=== PATIENT | female | born 1985 | race Caucasian/White ===

== ENCOUNTER 2016-11-22 09:02 | Emergency (ER) | payer OTHER ==
[2016-11-22 10:19] VITALS: BP 127/91
[2016-11-22] MEDS ORDERED: DOXYcycline CAP(*) 100 MG PO ONE (10:35)
[2016-11-22] MEDS ORDERED: HYDROcodone/ACETAMIN 5-325 MG* 1 TAB PO ONE (10:35)
[2016-11-22] MEDS ORDERED: predniSONE TAB* 20 MG PO ONE (10:36)
--- NOTE | 2016-11-22 11:19 | ED ---
Rox Joy Matthew, scribed for Sabrina Taylor MD on 11/22/16 at 1023 . Influenza-Like Illness - HPI Summary HPI Summary: A 31 y/o female presents to with a productive cough since 5 days ago. Associated symptoms include migraines, nausea, vomiting - 3 days ago, decreased appetite, intermittent fever, rhinorrhea, sore throat, diffuse body aches - more in the back, chest heaviness - radiated 8/10 in severity, and photophobia. The patient denies ear pelaez, diarrhea, constipation, abdominal pain, and visual changes. The patient did not receive the flu shot this year. - History of Current Complaint Chief Complaint: EDFluSymptoms Time Seen by Provider: 11/22/16 09:43 Hx Obtained From: Patient Onset/Duration: Gradual Onset, Lasting Days - 5 days ago, Still Present Severity: Moderate Associated Signs & Symptoms: Fever, Myalgia - Diffuse, Cough, Sore Throat, Headache, Vomiting - Allergy/Home Medications Allergies/Adverse Reactions: Allergies Allergy/AdvReac Type Severity Reaction Status Date / Time No Known Allergies Allergy Verified 11/22/16 09:23 PMH/Surg Hx/FS Hx/Imm Hx Endocrine/Hematology History: Denies: Hx Diabetes, Hx Thyroid Disease Cardiovascular History: Denies: Hx Hypertension Respiratory History: Reports: Hx Asthma Denies: Hx Chronic Obstructive Pulmonary Disease (COPD) GI History: Denies: Hx Ulcer - Surgical History Surgery Procedure, Year, and Place: Neck Surgery 1998; D & C; wisdom teeth Infectious Disease History: No Infectious Disease History: Denies: Hx Hepatitis, Hx Human Immunodeficiency Virus (HIV), History Other Infectious Disease, Traveled Outside the [place] in Last 30 Days - Family History Known Family History: Positive: Hypertension, Diabetes Family History: FHx of HLD. FHx of breast CA. FHx of cervical CA - Social History Alcohol Use: Rare Substance Use Type: Reports: None Smoking Status (MU): Never Smoked Tobacco Review of Systems Positive: Fever Positive: Photophobia Positive: Sore Throat. Negative: Ear Ache Positive: Chest Pain Positive: Cough Positive: Vomiting, Nausea. Negative: Abdominal Pain, Diarrhea Positive: no symptoms reported Positive: Myalgia - Diffuse body aches - worse in the lower back Skin: Negative Positive: Headache Psychological: Normal All Other Systems Reviewed And Are Negative: Yes Physical Exam Triage Information Reviewed: Yes Vital Signs On Initial Exam: Initial Vitals Temp Pulse Resp BP Pulse Ox 98.9 F 94 16 149/72 96 11/22/16 09:23 11/22/16 09:23 11/22/16 09:23 11/22/16 09:23 11/22/16 09:23 Vital Signs Reviewed: Yes Appearance: Positive: Well-Appearing, No Pain Distress Skin: Positive: Warm, Skin Color Reflects Adequate Perfusion, Dry Eyes: Positive: EOMI, TERA ENT: Positive: Pharynx normal, TMs normal, Other - Sinus tenderness Neck: Positive: Supple, Nontender Respiratory/Lung Sounds: Positive: Breath Sounds Present, Wheezes - expiratory that improves with coughing Cardiovascular: Positive: RRR, Murmur - small systolic left sternal heart boarder murmur Abdomen Description: Positive: Nontender, Soft. Negative: Distended, Guarding Bowel Sounds: Positive: Present Musculoskeletal: Positive: Normal, Strength/ROM Intact Neurological: Positive: Normal, Sensory/Motor Intact, Alert, Oriented to Person Place, Time Psychiatric: Positive: Normal, Affect/Mood Appropriate Diagnostics - Vital Signs Vital Signs Temp Pulse Resp BP Pulse Ox 11/22/16 09:23 98.9 F 94 16 149/72 96 - Laboratory Lab Statement: Any lab studies that have been ordered have been reviewed, and results considered in the medical decision making process. Flu Symptom Course/Dx - Course Course Of Treatment: 31 yo female 5 days of cough, sinus pressure and postussive emesis abx, prednisone (she has asthma) and short course of pain meds - Diagnoses Provider Diagnoses: Sinusitis, Bronchitis, Asthma exacerbation Discharge - Discharge Plan Condition: Stable Disposition: HOME Prescriptions: DOXYcycline CAP(*) [DOXYcycline 100MG CAP(*)] 100 mg PO BID #14 cap predniSONE TAB* [Deltasone TAB*] 60 mg PO DAILY #12 tab Patient Education Materials: Doxycycline (By mouth), Prednisone (By mouth), Sinusitis (ED), Acute Bronchitis (ED) Referrals: [facility] [Outside] Additional Instructions: Please follow-up with your primary care physician in 3 days. The documentation as recorded by the Rox marino Matthew accurately reflects the service I personally performed and the decisions made by me, Sabrina Taylor MD.
== END 2016-11-22 11:11 | disposition home or self-care (01) ==
LOC: ED 09:02
DX: J32.9 Chronic sinusitis, unspecified (principal); G43.909 Migraine, unspecified, not intractable, without status migrainosus; J45.901 Unspecified asthma with (acute) exacerbation; R05 Cough; J40 Bronchitis, not specified as acute or chronic; R11.2 Nausea with vomiting, unspecified; J02.9 Acute pharyngitis, unspecified; R50.9 Fever, unspecified; H53.149 Visual discomfort, unspecified; R07.9 Chest pain, unspecified; M54.5 Low back pain
CPT/HCPCS: 99282

== ENCOUNTER 2017-07-06 12:31 | Observation (INO) | payer OTHER ==
[2017-07-06 17:41] LABS: Hematocrit 37 % (35-47); Hemoglobin 12.3 g/dl (12.0-16.0); Mean Corpuscular HGB Conc 33 g/dl (31-36); Mean Corpuscular Hemoglobin 29 pg (27-31); Mean Corpuscular Volume 88 fL (80-97); Mean Platelet Volume 8 um3 (7.4-10.4); Red Blood Count 4.24 10^6/ul (4.0-5.4); Red Cell Distribution Width 14 % (10.5-15); White Blood Count 8.2 10^3/ul (3.5-10.8)
[2017-07-06] MEDS ORDERED: DOXYcycline IV* 100 MG in NS 0.9% 250 ML* 250 ML IVPB ONE (18:00)
[2017-07-06] MEDS ORDERED: Midazolam* 1 MG/ML 5 ML VIAL (5 MG) ONE (18:44)
[2017-07-06] MEDS ORDERED: fentaNYL* 50 MCG/ML 2 ML VIAL (100 MCG VIAL) ONE (18:44)
[2017-07-06] MEDS ORDERED: Chloroprocaine 2%* 20 ML VIAL ONE (18:59)
[2017-07-06] MEDS ORDERED: Propofol* 10 MG/ML 20 ML BTL IV PUSH ONE (18:59)
[2017-07-06] MEDS ORDERED: OXYTOCIN* 10 UNITS/ML 1 ML VIAL ONE (19:08)
[2017-07-06] MEDS ORDERED: Ketorolac INJ* 30 MG/ML 1 ML VIAL ONE (19:08)
[2017-07-06] MEDS ORDERED: Silver Nitrate/Potassium Nitr* 1 EA STICK ONE (19:14)
[2017-07-06] MEDS ORDERED: Ondansetron INJ* 2 MG/ML VIAL IV PRN (19:21)
[2017-07-06] MEDS ORDERED: oxyCODONE/Acetamin 5/325 MG* TAB ONE (20:41)
[2017-07-06 20:44] VITALS: BP 117/71
--- NOTE | 2017-07-07 15:43 | OP ---
DATE OF OPERATION: 07/06/17 - ROOM #340 DATE OF : 89 SURGEON: Julio Diehl MD ANESTHESIOLOGIST: Ese Limon MD ANESTHESIA: Spinal. PRE-OP DIAGNOSIS: Incomplete AB. POST-OP DIAGNOSIS: Incomplete AB. OPERATIVE PROCEDURE: D and C. COMPLICATIONS: None. ESTIMATED BLOOD LOSS: 100 cc. FINDINGS: On exam under anesthesia, uterus is 8 week size and anteverted. Cervix , vagina, and vulva appeared normal. DESCRIPTION OF PROCEDURE: Patient identified, and the procedure identified as a D and C. Patient was taken to the operating room, prepped and draped in the usual fashion in dorsal lithotomy position under spinal anesthesia. Two single- tooth tenaculums were placed in the anterior lip of the cervix. Cervix was easily dilated up to a #31 Hunter dilator, the #10 suction curette was inserted and suction curettage performed with moderate amount of tissue obtained. The sharp curette was inserted and tissue was noted at the mid fundal portion and scraped free and the small polyp forceps were used to excise this adherent piece of placental tissue. At this point, the sharp curette was inserted, sharp curettage performed, minimal tissue was obtained at this point, the suction curette was reinserted, no more tissue was obtained. All instruments removed from vagina. Silver nitrate was applied to the anterior cervix at the site of the tenaculum site. Otherwise, good hemostasis. All sponge and instrument counts were correct and the patient returned to the recovery room in stable condition. [id number]/CPS #: [id number] [facility]
== END 2017-07-06 20:59 | disposition home or self-care (01) ==
LOC: SSU 16:57
PROVIDERS: ADMIT Obstetrics & Gynecology; ATTEND Obstetrics & Gynecology
PROC: 10D17ZZ Extraction of Products of Conception, Retained, Via Natural or Artificial Opening (ICD-10-PCS; principal; 2017-07-06 16:30)
DX: O07.1 Delayed or excessive hemorrhage following failed attempted termination of pregnancy (principal)
CPT/HCPCS: 36415; 62323; 85025; 86900; 86901; 88305; A9270-GY; G0378; J1885; J2250; J2400; J2590; J2704; J3010

== ENCOUNTER 2017-07-17 19:24 | Emergency (ER) | payer OTHER ==
[2017-07-17] MEDS ORDERED: NS 0.9% 1000 ML* 1,000 ML IV ONE (20:13)
[2017-07-17] MEDS ORDERED: Ondansetron INJ* 2 MG/ML VIAL IV ONE (20:13)
[2017-07-17] MEDS ORDERED: Morphine INJ* 4 MG/ML 1 ML CARPUJECT IV ONE (20:13)
--- NOTE | 2017-07-17 21:07 | RAD ---
Indication: Vaginal bleeding status post D and C. The uterus measures 10.4 x 6.2 x 8.5 cm. Endometrial echo measures 10 mm with a trace amount of fluid in the endometrial cavity. Right ovary measures 2.6 x 1.7 x 3.5 cm. Left ovary measures 3.6 x 3.2 x 2.5 cm. IMPRESSION: Trace amount of fluid in the endometrial cavity with no evidence of retained products of conception.
[2017-07-17 21:33] LABS: Hematocrit 34 % (35-47); Hemoglobin 11.5 g/dl (12.0-16.0); Mean Corpuscular HGB Conc 34 g/dl (31-36); Mean Corpuscular Hemoglobin 30 pg (27-31); Mean Corpuscular Volume 88 fL (80-97); Mean Platelet Volume 8 um3 (7.4-10.4); Red Blood Count 3.84 10^6/ul (4.0-5.4); Red Cell Distribution Width 13 % (10.5-15); White Blood Count 7.1 10^3/ul (3.5-10.8)
[2017-07-17 21:45] LABS: ALT 16 U/L (7-52); AST 14 U/L (13-39); Alkaline Phosphatase 40 U/L (34-104); Anion Gap 5 mmol/L (2-11); BUN/Creatinine Ratio 17.1 (8-20); Blood Urea Nitrogen 13 mg/dL (6-24); CO2 Carbon Dioxide 27 mmol/L (22-32); Chloride 105 mmol/L (101-111); EGFR African American 114.9 (>60); EGFR Non-African American 89.4 (>60); Globulin 2.8 g/dL (2-4); Glucose 90 mg/dL (70-100); Lipase < 10 U/L (11.0-82.0); Potassium 3.8 mmol/L (3.5-5.0); Sodium 137 mmol/L (133-145); Total Protein 6.8 g/dL (6.4-8.9)
[2017-07-17] MEDS ORDERED: oxyCODONE/Acetamin 5/325 MG* TAB PO ONE ×2 (23:31→23:32)
--- NOTE | 2017-07-17 23:46 | ED ---
Paul Joy Angela, scribed for Dheeraj German on 07/17/17 at 2012 . GI/ HPI - HPI Summary HPI Summary: This pt is a 32 y/o female presenting to [facility] c/o vaginal bleeding and abd pain for 6 weeks now. Pt notes she had a miscarriage 6 weeks ago and had a D&C 11 days ago. She states she has been bleeding heavily since miscarriage and changes her pad every 2-3 hours every day. Today, she reports passing a white clump from her vagina. Her abd pain is aggravated by bending over, movement and palpation. Pt denies chest pain, SOB, LE swelling. PMHx: asthma, scoliosis - History of Current Complaint Chief Complaint: EDVaginalBleeding Time Seen by Provider: 07/17/17 20:01 Stated Complaint: VAGINAL BLEEDING/ABD PAIN Hx Obtained From: Patient Hx Last Menstrual Period: pt has iud Onset/Duration: Started Weeks Ago Timing: Lasting Weeks Pain Intensity: 9 Location of Pain: Diffuse Associated Signs and Symptoms: Positive: Abdominal Pain, Other: - vaginal bleeding Additional Signs & Symptoms: Positive: Vaginal Bleeding, Vaginal Discharge - today, Miscarriage - 6 weeks ago Aggravating Factor(s): Palpation, Movement, Movement Alleviating Factor(s): Nothing - Allergy/Home Medications Allergies/Adverse Reactions: Allergies Allergy/AdvReac Type Severity Reaction Status Date / Time No Known Allergies Allergy Verified 07/17/17 19:40 PMH/Surg Hx/FS Hx/Imm Hx Endocrine/Hematology History: Denies: Hx Diabetes, Hx Thyroid Disease Cardiovascular History: Denies: Hx Hypertension Respiratory History: Reports: Hx Asthma Denies: Hx Chronic Obstructive Pulmonary Disease (COPD) GI History: Denies: Hx Ulcer - Surgical History Surgery Procedure, Year, and Place: Neck Surgery 1998; D & C; wisdom teeth Infectious Disease History: No Infectious Disease History: Denies: Hx Hepatitis, Hx Human Immunodeficiency Virus (HIV), History Other Infectious Disease, Traveled Outside the [place] in Last 30 Days - Family History Known Family History: Positive: Hypertension, Diabetes Family History: FHx of HLD. FHx of breast CA. FHx of cervical CA - Social History Alcohol Use: None Substance Use Type: Reports: None Smoking Status (MU): Never Smoked Tobacco Review of Systems Negative: Fever, Chills Negative: Chest Pain Negative: Shortness Of Breath Positive: Abdominal Pain. Negative: Vomiting, Diarrhea, Nausea Positive: discharge - today, other - vaginal bleeding Negative: Edema, Other - LE pain Skin: Negative All Other Systems Reviewed And Are Negative: Yes Physical Exam Triage Information Reviewed: Yes Vital Signs On Initial Exam: Initial Vitals Temp Pulse Resp BP Pulse Ox 97.6 F 47 16 133/87 100 07/17/17 19:40 07/17/17 19:40 07/17/17 19:40 07/17/17 19:40 07/17/17 19:40 Vital Signs Reviewed: Yes Appearance: Positive: Well-Appearing, No Pain Distress Skin: Positive: Warm, Skin Color Reflects Adequate Perfusion, Dry Head/Face: Positive: Normal Head/Face Inspection Eyes: Positive: EOMI, TERA ENT: Positive: Normal ENT inspection Neck: Positive: Supple, Nontender Respiratory/Lung Sounds: Positive: Clear to Auscultation, Breath Sounds Present Cardiovascular: Positive: RRR, Pulses are Symmetrical in both Upper and Lower Extremities Abdomen Description: Positive: Soft, Other: - Tenderness in the right lower quadrant. Bowel Sounds: Positive: Present Musculoskeletal: Positive: Normal, Strength/ROM Intact Neurological: Positive: Normal, Sensory/Motor Intact, Alert, Oriented to Person Place, Time Diagnostics - Vital Signs Vital Signs Temp Pulse Resp BP Pulse Ox 07/17/17 19:40 97.6 F 47 16 133/87 100 - Laboratory Result Diagrams: 07/17/17 21:05 07/17/17 21:05 Lab Statement: Any lab studies that have been ordered have been reviewed, and results considered in the medical decision making process. - Ultrasound No standard instances Ultrasound Interpretation: Positive (See Comments) - Pelvic US IMPRESSION: Trace amount of fluid in the endometrial cavity with no evidence of retained products of conception. ED physician has reviewed this radiology report and agrees. Ultrasound Interpretation Completed By: Radiologist Re-Evaluation - Re-Evaluation First Eval Re-Evaluation Time: 22:48 Comment: I reviewed the US results with the pt. GIGU Course/Dx - Course Assessment/Plan: Pt is a 32 y/o female, 6 weeks post miscarriage and 11 days post D&C, presenting to [facility] c/o vaginal bleeding and abd pain for 6 weeks now. Bloodwork and pelvic US were obtained. On the pelvic exam, there was mild amount of blood. I discussed the pt's case with Dr. Elena, who recommends pain medications and discharge her with follow up from her ObGyn, Dr. Escobedo. - Diagnoses Provider Diagnoses: Vaginal bleeding, Abdominal pain - Physician Notifications Discussed Care Of Patient With: Jailyn Elena Time Discussed With Above Provider: 23:25 Instructed by Provider To: Other - I discussed the pt's case with Dr. Elena. He recommends to give her pain medications and discharge her with follow up from her ObGyn. Discharge - Discharge Plan Condition: Stable Disposition: HOME Patient Education Materials: Abdominal Pain (ED) Referrals: Jean Pierer Mccall MD [Primary Care Provider] - Higinio Escobedo MD [Medical Doctor] - Additional Instructions: Please call Dr. Escobedo tomorrow morning and follow up with her. The documentation as recorded by the Paul marino Angela accurately reflects the service I personally performed and the decisions made by me, Dheeraj German.
[2017-07-18 00:12] VITALS: BP 108/71
== END 2017-07-18 00:11 | disposition home or self-care (01) ==
LOC: ED 19:24
DX: R10.9 Unspecified abdominal pain (principal); N93.9 Abnormal uterine and vaginal bleeding, unspecified
CPT/HCPCS: 36415; 76856; 80053; 83690; 84702; 85025; 85610; 85730; 96374; 96375; 99282; A9270-GY; J2270; J2405

== ENCOUNTER 2017-12-02 08:48 | Emergency (ER) | payer OTHER ==
[2017-12-02] MEDS ORDERED: NS 0.9% 1000 ML* 1,000 ML IV ONE ×2 (09:46→10:39)
[2017-12-02] MEDS ORDERED: Oseltamivir CAP* 75 MG CAP PO ONE (10:00)
[2017-12-02] MEDS ORDERED: guaiFENesin LIQ* 100 MG/5 ML UDC PO ONE (10:01)
[2017-12-02] MEDS ORDERED: Acetaminophen TAB* 325 MG PO ONE (10:02)
[2017-12-02 10:10] LABS: ABS Basophils 0 10^3/ul (0-0.2); ABS Eosinophils 0 10^3/ul (0-0.6); ABS Lymphocytes 0.8 10^3/ul (1.0-4.8); ABS Monocytes 0.6 10^3/ul (0-0.8); ABS Neutrophils 3.6 10^3/ul (1.5-7.7); ABS Nucleated RBC 0 10^3/ul; Eosinophil % 0.2 % (0-6); Hematocrit 37 % (35-47); Hemoglobin 12.7 g/dl (12.0-16.0); Lymphocyte % 16.6 % (25-47); Mean Corpuscular HGB Conc 35 g/dl (31-36); Mean Corpuscular Hemoglobin 30 pg (27-31); Mean Corpuscular Volume 86 fL (80-97); Mean Platelet Volume 8 um3 (7.4-10.4); Nucleated Red Blood Cells % 0.1; Platelet Count 184 10^3/ul (150-450); Red Blood Count 4.26 10^6/ul (4.0-5.4); Red Cell Distribution Width 13 % (10.5-15); White Blood Count 5.1 10^3/ul (3.5-10.8)
[2017-12-02 10:30] LABS: EGFR Non-African American 99.9 (>60)
[2017-12-02] MEDS ORDERED: Albuterol HFA INHALER* 8 gm MDI INH ONE (11:34)
[2017-12-02 11:42] VITALS: BP 107/50
[2017-12-02 11:42] LABS: Urine Appearance Clear; Urine Blood Negative (Negative); Urine Color Yellow; Urine Ketones Negative (Negative); Urine Protein Negative (Negative); Urine Specific Gravity 1.008 (1.010-1.030); Urine Urobilinogen Negative (Negative)
--- NOTE | 2017-12-02 14:30 | ED ---
Influenza-Like Illness - HPI Summary HPI Summary: Patient is a 9 week female who presents to the ED with body aches, nausea, vomiting, chills, fevers, aches 4 days. Endorses sick contacts, specifically the flu. She is otherwise healthy and takes no medications. Decreased by mouth intake due to nausea. She denies headache. Fever highest at 102. She states she is very fatigued. Denies any complications with this thus far. Denies the flu vaccine. Endorses 1X emesis. Denies diarrhea or constipation. - History of Current Complaint Chief Complaint: EDFluSymptoms Time Seen by Provider: 12/02/17 09:14 Hx Obtained From: Patient Onset/Duration: Sudden Onset Severity: Moderate Associated Signs & Symptoms: Fever, T Max - 102, F/C Related Hx: Possible Flu/Infectious Exposure - Risk Factors Influenza Risk Factors: Negative - Allergy/Home Medications Allergies/Adverse Reactions: Allergies Allergy/AdvReac Type Severity Reaction Status Date / Time No Known Allergies Allergy Verified 12/02/17 08:59 PMH/Surg Hx/FS Hx/Imm Hx Previously Healthy: Yes Endocrine/Hematology History: Denies: Hx Diabetes, Hx Thyroid Disease Cardiovascular History: Denies: Hx Hypertension Respiratory History: Reports: Hx Asthma Denies: Hx Chronic Obstructive Pulmonary Disease (COPD) GI History: Denies: Hx Ulcer - Surgical History Surgery Procedure, Year, and Place: Neck Surgery 1998; D & C; wisdom teeth Infectious Disease History: No Infectious Disease History: Denies: Hx Hepatitis, Hx Human Immunodeficiency Virus (HIV), History Other Infectious Disease, Traveled Outside the [place] in Last 30 Days - Family History Known Family History: Positive: Hypertension, Diabetes Family History: FHx of HLD. FHx of breast CA. FHx of cervical CA - Social History Occupation: Employed Full-time Lives: With Family Alcohol Use: None Hx Substance Use: No Substance Use Type: Reports: None Smoking Status (MU): Never Smoked Tobacco Review of Systems Positive: Fever, Chills, Fatigue, Skin Diaphoresis Eyes: Negative Positive: Sore Throat Negative: Palpitations, Chest Pain Respiratory: Negative Positive: Vomiting, Nausea Genitourinary: Negative Positive: no symptoms reported, see HPI Positive: Myalgia Skin: Negative Positive: Headache All Other Systems Reviewed And Are Negative: Yes Physical Exam Triage Information Reviewed: Yes Vital Signs On Initial Exam: Initial Vitals Temp Pulse Resp BP Pulse Ox 99.1 F 81 16 121/75 98 12/02/17 09:00 12/02/17 09:00 12/02/17 09:00 12/02/17 09:00 12/02/17 09:00 Vital Signs Reviewed: Yes Appearance: Positive: Well-Appearing, Well-Nourished Skin: Positive: Warm, Skin Color Reflects Adequate Perfusion Head/Face: Positive: Normal Head/Face Inspection Eyes: Positive: EOMI, TERA, Conjunctiva Clear Neck: Positive: Supple, Nontender, No Lymphadenopathy Respiratory/Lung Sounds: Positive: Clear to Auscultation, Breath Sounds Present Cardiovascular: Positive: Normal, RRR, Pulses are Symmetrical in both Upper and Lower Extremities Musculoskeletal: Positive: Normal, Strength/ROM Intact Neurological: Positive: Sensory/Motor Intact, Alert, Oriented to Person Place, Time, Speech Normal Psychiatric: Positive: Normal AVPU Assessment: Alert Diagnostics - Vital Signs Vital Signs Temp Pulse Resp BP Pulse Ox 12/02/17 11:41 98.6 F 71 16 107/50 97 12/02/17 11:31 72 97 12/02/17 10:30 73 106/55 99 12/02/17 10:03 76 98 12/02/17 09:00 99.1 F 81 16 121/75 98 - Laboratory Lab Results: Lab Results 12/02/17 12/02/17 12/02/17 Range/Units 09:35 09:53 09:53 WBC 5.1 (3.5-10.8) 10^3/ul RBC 4.26 (4.0-5.4) 10^6/ul Hgb 12.7 (12.0-16.0) g/dl Hct 37 (35-47) % MCV 86 (80-97) fL MCH 30 (27-31) pg MCHC 35 (31-36) g/dl RDW 13 (10.5-15) % Plt Count 184 (150-450) 10^3/ul MPV 8 (7.4-10.4) um3 Neut % (Auto) 71.6 (38-83) % Lymph % (Auto) 16.6 L (25-47) % [place]eman % (Auto) 11.2 H (1-9) % Eos % (Auto) 0.2 (0-6) % Baso % (Auto) 0.4 (0-2) % Absolute Neuts (auto) 3.6 (1.5-7.7) 10^3/ul Absolute Lymphs (auto) 0.8 L (1.0-4.8) 10^3/ul Absolute Monos (auto) 0.6 (0-0.8) 10^3/ul Absolute Eos (auto) 0 (0-0.6) 10^3/ul Absolute Basos (auto) 0 (0-0.2) 10^3/ul Absolute Nucleated RBC 0 10^3/ul Nucleated RBC % 0.1 Sodium 133 (133-145) mmol/L Potassium 3.6 (3.5-5.0) mmol/L Chloride 101 (101-111) mmol/L Carbon Dioxide 25 (22-32) mmol/L Anion Gap 7 (2-11) mmol/L BUN 6 (6-24) mg/dL Creatinine 0.69 (0.51-0.95) mg/dL Est GFR ( Amer) 128.5 (>60) Est GFR (Non-Af Amer) 99.9 (>60) BUN/Creatinine Ratio 8.7 (8-20) Glucose 102 H (70-100) mg/dL Lactic Acid (0.5-2.0) mmol/L Calcium 9.4 (8.6-10.3) mg/dL Total Bilirubin 0.40 (0.2-1.0) mg/dL AST 14 (13-39) U/L ALT 12 (7-52) U/L Alkaline Phosphatase 39 (34-104) U/L Total Protein 7.1 (6.4-8.9) g/dL Albumin 4.1 (3.2-5.2) g/dL Globulin 3.0 (2-4) g/dL Albumin/Globulin Ratio 1.4 (1-3) Urine Color Urine Appearance Urine pH (5-9) Ur Specific [place] (1.010-1.030) Urine Protein (Negative) Urine Ketones (Negative) Urine Blood (Negative) Urine Nitrate (Negative) Urine Bilirubin (Negative) Urine Urobilinogen (Negative) Ur Leukocyte Esterase (Negative) Urine WBC (Auto) (Absent) Urine RBC (Auto) (Absent) Urine Bacteria (Absent) Urine Glucose (Negative) Influenza A (Rapid) Negative (Negative) Influenza B (Rapid) Positive H (Negative) 12/02/17 12/02/17 Range/Units 09:53 11:01 WBC (3.5-10.8) 10^3/ul RBC (4.0-5.4) 10^6/ul Hgb (12.0-16.0) g/dl Hct (35-47) % MCV (80-97) fL MCH (27-31) pg MCHC (31-36) g/dl RDW (10.5-15) % Plt Count (150-450) 10^3/ul MPV (7.4-10.4) um3 Neut % (Auto) (38-83) % Lymph % (Auto) (25-47) % [place] % (Auto) (1-9) % Eos % (Auto) (0-6) % Baso % (Auto) (0-2) % Absolute Neuts (auto) (1.5-7.7) 10^3/ul Absolute Lymphs (auto) (1.0-4.8) 10^3/ul Absolute Monos (auto) (0-0.8) 10^3/ul Absolute Eos (auto) (0-0.6) 10^3/ul Absolute Basos (auto) (0-0.2) 10^3/ul Absolute Nucleated RBC 10^3/ul Nucleated RBC % Sodium (133-145) mmol/L Potassium (3.5-5.0) mmol/L Chloride (101-111) mmol/L Carbon Dioxide (22-32) mmol/L Anion Gap (2-11) mmol/L BUN (6-24) mg/dL Creatinine (0.51-0.95) mg/dL Est GFR ( Amer) (>60) Est GFR (Non-Af Amer) (>60) BUN/Creatinine Ratio (8-20) Glucose (70-100) mg/dL Lactic Acid 0.7 (0.5-2.0) mmol/L Calcium (8.6-10.3) mg/dL Total Bilirubin (0.2-1.0) mg/dL AST (13-39) U/L ALT (7-52) U/L Alkaline Phosphatase (34-104) U/L Total Protein (6.4-8.9) g/dL Albumin (3.2-5.2) g/dL Globulin (2-4) g/dL Albumin/Globulin Ratio (1-3) Urine Color Yellow Urine Appearance Clear Urine pH 5.0 (5-9) Ur Specific [place] 1.008 L (1.010-1.030) Urine Protein Negative (Negative) Urine Ketones Negative (Negative) Urine Blood Negative (Negative) Urine Nitrate Negative (Negative) Urine Bilirubin Negative (Negative) Urine Urobilinogen Negative (Negative) Ur Leukocyte Esterase Negative (Negative) Urine WBC (Auto) Trace(0-5/hpf) (Absent) Urine RBC (Auto) Trace(0-2/hpf) (Absent) Urine Bacteria Absent (Absent) Urine Glucose Negative (Negative) Influenza A (Rapid) (Negative) Influenza B (Rapid) (Negative) Result Diagrams: 12/02/17 09:53 12/02/17 09:53 Lab Statement: Any lab studies that have been ordered have been reviewed, and results considered in the medical decision making process. Flu Symptom Course/Dx - Course Course Of Treatment: Patient presents to the ED with flulike symptoms. She is evaluated for the flu and possible dehydration. Labs obtained. Influenza B- positive. Labs within normal limits with no white count or left shift to suggest a bacterial component. No dehydration based on labs. She is given 1 L fluids, Robitussin for cough, Tamiflu and Tylenol. Temperature reduced from 100.5-98.7 while in the ED. No given for work. Care instructions given. She will follow-up with her [facility]. According to CDC tamiflu is safe and recommended in . - Diagnoses Provider Diagnoses: Influenza B Discharge - Discharge Plan Condition: Stable Disposition: HOME Prescriptions: guaiFENesin LIQ* [Robitussin*] 10 ml PO Q4H PRN #180 ml MDD 60 PRN Reason: Cough Oseltamivir CAP* [Tamiflu CAP*] 75 mg PO BID #9 cap Patient Education Materials: Oseltamivir (By mouth) Forms: *Work Release Referrals: Jean Pierre Mccall MD [Primary Care Provider] - Additional Instructions: Tylenol 650 mg 3 times daily for fever and body aches Rest as much as possible Tamiflu 75 mg twice daily 5 days Please follow-up with your [facility] [employer] and/or PCP Please return for any worsening or changing symptoms You may take Robitussin 2 teaspoons every 4 hours as needed for cough Drink plenty of fluid
== END 2017-12-02 11:41 | disposition home or self-care (01) ==
LOC: ED 08:48
DX: J11.1 Influenza due to unidentified influenza virus with other respiratory manifestations (principal)
CPT/HCPCS: 36415; 80053; 81003; 83605; 85025; 87502; 99283; A9270-GY

== ENCOUNTER 2018-06-02 09:33 | Inpatient (IN) | payer OTHER ==
--- NOTE | 2018-06-02 11:34 | HP ---
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, GDM, hx labor, asthma, benign heart murmur Pertinent Past Surgical History: See Records - extra rib bone removed 1998 Pertinent Family History: See Records - high chol, DM, uterine CA, HTN , scoliosis Review of Systems Constitutional: Comfortable CV Complaint: Yes Respiratory: Shortness of Breath: Yes Gastrointestinal: No Nausea/Vomiting, Normal Bowel Movement Genitourinary: No Dysuria, No Leaking Fluid, Spotting Musculoskeletal: No Epigastric Pain, Contractions Neurological: No Headache, No Visual Changes Movement: Normal Exam Allergies/Adverse Reactions: Allergies No Known Allergies Allergy (Verified 12/02/17 08:59) T:98.8, P:64, R:18, BP: 136/76, O2:99 - Measurements Height: 5 ft 6 in Weight: 236 lb Weight in lbs: [phone] Body Mass Index (BMI): 38.0 Pre- Weight: 193 lb Weight Gained This : 43 lbs and 0 ozs - Exam Breast: Breast Exam Deferred CVA: No CVA Tenderness Extremities: No Edema Heart: Normal Rhythm/Heart Sounds HEENT: No Significant Findings Lungs: Clear Bilaterally Rectal: Rectal Exam Deferred Reflexes: DTR 2+ Thyroid: No Thyromegaly - Abdominal Exam Abdomen Exam: Non-Tender - Ultrasound/Biophysical Profile Ultrasound Status: Not Done Targeted Exam Findings Estimated Weight: 5lbs Cervical Exam: 6cm Effacement: Thin Station: -2 Presenting Part: Vertex Membrane Status: Bulging Bleeding/Discharge: Bloody Show EFM Findings - External Monitor Findings Baseline Heart Rate: 145 External Monitor Findings: Accelerations Present, No Pattern of Variable or Late Decelerations, Variability Moderate, Baseline Stable Contractions: Regular, Moderate, 45-90 Seconds Contraction Frequency: 2-4 Assessment/Plan - Assessment active labor - Obstetrical Risk Factors Obstetrical Risk Factors: - Plan Plan: Admit - Anticipate Vaginal Delivery - Date/Time of Admission Date of Admission: 06/02/18 Time of Admission: 11:38
[2018-06-02] MEDS ORDERED: Glycerin ADULT SUPP PR PRN (13:35)
[2018-06-02] MEDS ORDERED: Acetaminophen TAB* 325 MG PO PRN (13:35)
[2018-06-02] MEDS ORDERED: Witch Hazel PAD* JAR TOPICAL PRN (13:35)
[2018-06-02] MEDS ORDERED: Dibucaine 1% 28.35 GM TUBE PR PRN (13:35)
[2018-06-02] MEDS ORDERED: Ibuprofen TAB* 600 MG PO PRN (13:35)
--- NOTE | 2018-06-02 13:38 | PROCNOTE ---
[facility] OB: Delivery Note - Delivery A Date of : 06/02/18 [place] Sex: Male Score 1 Minute: 8 Score 5 Minutes: 9 Gestational Age in Weeks and Days at Delivery: 35 Weeks and 5 Days Delivery Method: Spontaneous Vaginal Labor: Spontaneous Amniotic Fluid: Clear Estimated Blood Loss: 200 Anesthesia/Analgesia: None Delivered By: Minnie Sapp - Nursery Level of Nursery: Regular/Bedside - Perineum Perineal Injury: Perineal Laceration, 1st Degree Perineal Repair: By Delivering Practioner - Events Delivery Events of Note: Pitocin Only After Delivery
[2018-06-02] MEDS ORDERED: OXYTOCIN* 10 UNITS/ML 1 ML VIAL IM ONE (13:40)
[2018-06-02] MEDS ORDERED: Simethicone TAB* 80 MG TAB.CHEW PO SCH (17:30)
[2018-06-02] MEDS: Docusate CAP* 100 MG PO SCH (19:11)
[2018-06-03 07:46] LABS: Hematocrit 31 % (35-47); Hemoglobin 10.7 g/dl (12.0-16.0); Mean Corpuscular HGB Conc 35 g/dl (31-36); Mean Corpuscular Hemoglobin 31 pg (27-31); Mean Corpuscular Volume 88 fL (80-97); Mean Platelet Volume 8.4 um3 (7.4-10.4); Platelet Count 179 10^3/ul (150-450); Red Blood Count 3.48 10^6/ul (4.00-5.40); Red Cell Distribution Width 13 % (10.5-15); White Blood Count 10.8 10^3/ul (3.5-10.8)
[2018-06-03] MEDS: Docusate CAP* 100 MG PO SCH ×3 (07:53→21:20)
[2018-06-03] MEDS ORDERED: Ferrous Gluconate TAB* 324 MG TAB PO SCH (09:00)
[2018-06-04] MEDS: Docusate CAP* 100 MG PO SCH (08:26)
[2018-06-04 13:00] VITALS: BP 121/67
== END 2018-06-04 14:40 | disposition home or self-care (01) | DRG 560 ==
LOC: MCHOBOUT 09:33 → MCHOB 11:08
PROVIDERS: ADMIT Midwife; ATTEND Midwife
PROC: 10E0XZZ Delivery of Products of Conception, External Approach (ICD-10-PCS; principal; 2018-06-02)
PROC: 0HQ9XZZ Repair Perineum Skin, External Approach (ICD-10-PCS; 2018-06-02)
DX: O60.14X0 Preterm labor third trimester with preterm delivery third trimester, not applicable or unspecified (principal); O24.420 Gestational diabetes mellitus in childbirth, diet controlled; O70.0 First degree perineal laceration during delivery; Z3A.35 35 weeks gestation of pregnancy; Z37.0 Single live birth
CPT/HCPCS: 36415; 85027; 87641; A9270-GY

== ENCOUNTER 2019-08-22 13:11 | Emergency (ER) | payer OTHER ==
--- NOTE | 2019-08-22 13:44 | ED ---
Upper Extremity Pain - HPI Summary HPI Summary: Patient is a 34-year-old female who presents emergency department for injury to left middle finger of hand that occurred yesterday. Patient states she was play fighting with her sister yesterday and injured her finger. Symptoms are mild in severity. Movement makes symptoms worse. Nothing makes symptoms better. No other injuries sustained. - History of Current Complaint Chief Complaint: EDExtremityUpper Stated Complaint: LT MIDDLE FINGER INJ PER PT Time Seen by Provider: 08/22/19 13:43 Hx Obtained From: Patient Hx Last Menstrual Period: pt has iud - Allergies/Home Medications Allergies/Adverse Reactions: Allergies Allergy/AdvReac Type Severity Reaction Status Date / Time No Known Allergies Allergy Verified 12/02/17 08:59 PMH/Surg Hx/FS Hx/Imm Hx Previously Healthy: Yes Endocrine/Hematology History: Denies: Hx Diabetes, Hx Thyroid Disease Cardiovascular History: Denies: Hx Hypertension Respiratory History: Reports: Hx Asthma Denies: Hx Chronic Obstructive Pulmonary Disease (COPD) GI History: Denies: Hx Ulcer - Surgical History Surgery Procedure, Year, and Place: Neck Surgery 1998; D & C; wisdom teeth Infectious Disease History: No Infectious Disease History: Denies: Hx Hepatitis, Hx Human Immunodeficiency Virus (HIV), History Other Infectious Disease, Traveled Outside the [place] in Last 30 Days - Family History Known Family History: Positive: Hypertension, Diabetes, Non-Contributory Family History: FHx of HLD. FHx of breast CA. FHx of cervical CA - Social History Occupation: Unemployed Lives: With Family Alcohol Use: None Hx Substance Use: No Substance Use Type: Reports: None Smoking Status (MU): Never Smoked Tobacco Review of Systems Positive: Other - Pain to left middle digit of hand. Positive: Bruising Neurological: Negative Negative: Weakness, Paresthesia, Numbness All Other Systems Reviewed And Are Negative: Yes Physical Exam Triage Information Reviewed: Yes Vital Signs On Initial Exam: Initial Vitals Temp Pulse Resp BP Pulse Ox 97.2 F 54 16 122/85 99 08/22/19 13:14 08/22/19 13:14 08/22/19 13:14 08/22/19 13:14 08/22/19 13:14 Vital Signs Reviewed: Yes Appearance: Positive: Well-Appearing - Patient sitting on bed in no acute distress. Family present. Skin: Positive: Warm, Dry Head/Face: Positive: Normal Head/Face Inspection Eyes: Positive: Normal, EOMI Neck: Positive: Supple Musculoskeletal: Positive: Other - Ecchymosis and mild edema noted to that digit of left hand. Slight restriction with flexion secondary to edema and pain. Pain mildly extensive to hand. No breaks in the skin. Neurological: Positive: Normal, CN Intact II-III Psychiatric: Positive: Affect/Mood Appropriate Procedures - Sedation Patient Received Moderate/Deep Sedation with Procedure: No - Splinting Left 3rd Digit Pre-Made Type: finger splint Pre-Proc Neuro Vasc Exam: normal Post-Proc Neuro Vasc Exam: normal Diagnostics - Vital Signs Vital Signs Temp Pulse Resp BP Pulse Ox 08/22/19 13:14 97.2 F 54 16 122/85 99 - Laboratory Lab Statement: Any lab studies that have been ordered have been reviewed, and results considered in the medical decision making process. Course/Dx - Course Course Of Treatment: Finger x-ray negative for fracture dislocation, reading per radiology. Splint was placed for comfort. Advised ice and elevation intermittently. Tylenol or Motrin for pain as directed. To follow-up with PCP if pain persists. Patient understands and agrees with plan. - Diagnoses Differential Diagnosis/HQI/PQRI: Positive: Contusion, Fracture (Closed), Strain , Sprain Provider Diagnoses: Finger sprain Discharge ED - Sign-Out/Discharge Documenting (check all that apply): Patient Departure - Discharge Plan Condition: Good Disposition: HOME Patient Education Materials: Finger Sprain (ED) Referrals: [facility] [Outside] Additional Instructions: Follow up with the [facility] is pain persist Wear splint for comfort Ice and elevate Tylenol or Motrin for pain as directed Return to ER if symptoms change or worsen - Billing Disposition and Condition Condition: GOOD Disposition: Home - Attestation Statements Provider Attestation: I was available for consult. This patient was seen by the CLAUS. The patient was not presented to, seen by, or examined by me. -Jabari
[2019-08-22 14:59] VITALS: BP 129/79
== END 2019-08-22 14:55 | disposition home or self-care (01) ==
LOC: ED 13:11
DX: S63.613A Unspecified sprain of left middle finger, initial encounter (principal); W51.XXXA Accidental striking against or bumped into by another person, initial encounter; Y93.83 Activity, rough housing and horseplay; Y92.9 Unspecified place or not applicable
CPT/HCPCS: 99282

== ENCOUNTER 2022-02-03 08:08 | Inpatient (IN) ==
[2022-02-03] MEDS ORDERED: Buffered Lidocaine 1% SYRIN 1 ml INTRADERM ONE (08:48)
[2022-02-03] MEDS ORDERED: Lactated Ringers 1000 ml BAG 1,000 ML IV ONE ×2 (08:48→13:37)
[2022-02-03 09:42] LABS: ABS Eosinophils 0.1 10^3/ul (0-0.6); ABS Lymphocytes 1.4 10^3/ul (1.0-4.8); ABS Monocytes 0.8 10^3/ul (0-0.8); ABS Neutrophils 8.8 10^3/ul (1.5-7.7); Eosinophil % 0.7 %; Hematocrit 33 % (35-47); Hemoglobin 11.3 g/dL (12.0-16.0); Lymphocyte % 12.5 %; Mean Corpuscular HGB Conc 34 g/dL (31-36); Mean Corpuscular Hemoglobin 30 pg (27-31); Mean Corpuscular Volume 89 fL (80-97); Mean Platelet Volume 8.1 fL (7.4-10.4); Platelet Count 206 10^3/uL (150-450); Red Cell Distribution Width 13 % (10-15)
[2022-02-03 10:11] LABS: Urine Benzodiazepine Screen None Detected (None Detect); Urine Cannabinoids Screen None Detected (None Detect); Urine Opiates Screen None Detected (None Detect)
[2022-02-03] MEDS ORDERED: Oxytocin in LR 20 UNITS/1,000 ML BAG IVPB ONE (11:42)
[2022-02-03] MEDS ORDERED: Bupivacaine 0.25% SDV PF 10 ML VIAL INJ ONE (12:55)
[2022-02-03] MEDS ORDERED: Sodium Citrate/Citric Acid LIQ 15 ML UDC PO PRN (13:37)
[2022-02-03] MEDS ORDERED: EPHEDrine (Pressors) 50 MG/ML VIAL IV PUSH PRN ×2 (13:37)
[2022-02-03] MEDS ORDERED: Phenylephrine 40 mcg/mL 10mL (400mcg) SYRINGE IV PUSH PRN ×2 (13:37)
[2022-02-03] MEDS ORDERED: Lactated Ringers 1000 ml BAG 500 ML IV PRN ×2 (13:37)
[2022-02-03] MEDS ORDERED: Lactated Ringers 1000 ml BAG 1,000 ML IV SCH ×2 (14:00→19:00)
[2022-02-03] MEDS ORDERED: OBEPIDURAL (200 ML) 200 ML EPIDURAL SCH (14:00)
[2022-02-03 15:46] LABS: Urine Appearance Clear; Urine Bilirubin Negative (Negative); Urine Blood 1+ (Negative); Urine Color Yellow; Urine Glucose Negative (Negative); Urine Ketones Trace (Negative); Urine Nitrite Negative (Negative); Urine Protein Negative (Negative); Urine Specific Gravity 1.009 (1.002-1.030); Urine Urobilinogen Positive (Negative)
[2022-02-03 15:48] LABS: Urine Bacteria Absent (Absent); Urine Red Blood Cell Trace(0-2/hpf) (Absent); Urine Squamous Epithelial Cell Present (Absent); Urine White Blood Cell Trace(0-5/hpf) (Absent)
[2022-02-03] MEDS ORDERED: Dibucaine 1% OINT 28.35 GM TUBE PR PRN (18:12)
[2022-02-03] MEDS ORDERED: Witch Hazel PAD JAR TOPICAL PRN (18:12)
[2022-02-03] MEDS ORDERED: Oxytocin in LR 20 UNITS/1,000 ML BAG IVPB SCH (19:00)
[2022-02-04 05:47] LABS: ABS Eosinophils 0.1 10^3/ul (0-0.6); ABS Lymphocytes 1.9 10^3/ul (1.0-4.8); ABS Monocytes 0.9 10^3/ul (0-0.8); ABS Neutrophils 9.3 10^3/ul (1.5-7.7); Eosinophil % 0.6 %; Hematocrit 30 % (35-47); Hemoglobin 10.3 g/dL (12.0-16.0); Lymphocyte % 15.2 %; Mean Corpuscular HGB Conc 34 g/dL (31-36); Mean Corpuscular Hemoglobin 31 pg (27-31); Mean Corpuscular Volume 90 fL (80-97); Mean Platelet Volume 8.1 fL (7.4-10.4); Platelet Count 178 10^3/uL (150-450); Red Blood Count 3.34 10^6 /uL (3.70-4.87); Red Cell Distribution Width 13 % (10-15); White Blood Count 12.1 10^3/uL (3.5-10.8)
[2022-02-05 08:13] VITALS: BP 119/69
== END 2022-02-05 17:42 | disposition home or self-care (01) | DRG 560 ==
LOC: MCHOBOUT 08:08 → MCHOB 08:58
PROVIDERS: ADMIT Advanced Practice Midwife; ATTEND Advanced Practice Midwife